=== PATIENT | female | born 1985 | race Caucasian/White ===

== ENCOUNTER 2020-11-29 06:13 | Inpatient (IN) | payer MEDICAID ==
[~2020-11-29] VITALS: Ht 162.6 cm; Wt 78.7 kg
[2020-11-29] MEDS ORDERED: ONDANSETRON 2MG/ML, 2ML IVPush ONE (06:30)
--- NOTE | 2020-11-29 06:34 | NUR ---
BIB EMS FROM [place], PT HAD ELEVATED REPEAT TROP, [employer] PT HAS GOTTEN HEPARIN, ASA, NITRO AND MORPHINE. UPON ARRIVAL TO ED PT MAIN COMPLAINT IS CANSECO, EKG UPON ARRIVAL PT CONNECTED TO ALL MONITORING, VSS, RESP EVEN AND UNLABORED.
[2020-11-29] MEDS ORDERED: ONDANSETRON 2MG/ML, 2ML ONE (06:35)
[2020-11-29] MEDS ORDERED: MORPHINE SULFATE 4 MG/ML, 1ML ONE ×2 (06:35→07:44)
[2020-11-29] MEDS: MORPHINE SULFATE 4 MG/ML, 1ML IVPush PRN ×2 (06:37→07:46)
--- NOTE | 2020-11-29 06:48 | NUR ---
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
--- NOTE | 2020-11-29 06:52 | NUR ---
REPORT FROM LISA. PT RESTING, VSS. GIVEN WARM BLANKET. CALL LIGHT IN REACH
--- NOTE | 2020-11-29 07:17 | NUR ---
dr hussein spoke with dr wilkinson
--- NOTE | 2020-11-29 08:06 | NUR ---
REPORT TO MELLY FLOWERS TELE. PT READY FOR TRANSFER. CELL PHONE W PT
[2020-11-29 08:30] LABS: ANION GAP 4 mmol/L (5-15); CALCIUM 8.4 mg/dL (8.5-10.1); CHLORIDE 110 mmol/L (98-107)
[2020-11-29] MEDS: ACETAMINOPHEN 325 MG TABLET PO PRN (10:47)
[2020-11-29] MEDS ORDERED: SODIUM CHLORIDE 0.9% 1,000 ML IV SCH (11:00)
[2020-11-29] MEDS ORDERED: morphine SULFATE 10 MG/ML, 1ML IVPush PRN (12:00)
[2020-11-29] MEDS ORDERED: ONDANSETRON ODT 4 MG PO PRN (12:00)
[2020-11-29] MEDS ORDERED: ACETAMINOPHEN 325 MG TABLET PO PRN (12:00)
[2020-11-29] MEDS ORDERED: ONDANSETRON 2MG/ML, 2ML IVPush PRN (12:00)
[2020-11-29] MEDS ORDERED: HEPARIN 25,000 UNITS/250ML PMX 250 ML IV PRN (12:30)
[2020-11-29] MEDS ORDERED: HEPARIN 5,000 UNITS/ML, 1ML IV PRN (12:30)
[2020-11-29] MEDS ORDERED: HEPARIN 5,000 UNITS/ML, 1ML IV ONE (12:30)
[2020-11-29 13:13] VITALS: BP 120/79
[2020-11-29] MEDS ORDERED: FENTANYL PF 100 MCG/2ML ONE (14:22)
[2020-11-29] MEDS ORDERED: VERAPAMIL 2.5 MG/ML, 2ML ONE (14:22)
[2020-11-29] MEDS ORDERED: BIVALIRUDIN 250 MG ONE (14:22)
[2020-11-29] MEDS ORDERED: MIDAZOLAM 1 MG/ML, 2ML ONE (14:22)
[2020-11-29] MEDS ORDERED: HEPARIN 1,000 UNITS/ML, 10ML ONE (14:23)
[2020-11-29] MEDS ORDERED: LIDOCAINE-MPF 1%, 5ML ONE (14:23)
[2020-11-29] MEDS: SODIUM CHLORIDE 0.9% 1,000 ML IV SCH ×2 (16:26→20:57)
[2020-11-29 16:31] VITALS: BP 120/79
[2020-11-29] MEDS ORDERED: SERT50TA PO (16:46)
[2020-11-29] MEDS: CARVEDILOL 3.125 MG TABLET PO SCH (18:03)
[2020-11-29 19:14] VITALS: BP 102/69
[2020-11-29] MEDS: SERTRALINE 50MG TABLET HOMEMEDPO SCH (20:30)
[2020-11-29] MEDS: DOCUSATE 100 MG CAPSULE PO SCH (20:32)
[2020-11-29] MEDS ORDERED: ATORVASTATIN 80 MG TABLET PO SCH (21:00)
[2020-11-30 01:46] VITALS: BP 101/67
[2020-11-30 05:07] LABS: BASOPHILS % (AUTO) 1 % (0-1); EOSINOPHILS % (AUTO) 4 % (1-7); LYMPHOCYTES % (AUTO) 30 % (22-44); MEAN CORPUSCULAR HEMOGLOBIN 29.6 pg (27.0-34.8); MEAN CORPUSCULAR HGB CONC 33.3 g/dL (32.4-35.8); MONOCYTES % (AUTO) 8 % (2-9); NEUTROPHILS % (AUTO) 58 % (42-75); PLATELET COUNT 204 x10^3/uL (130-400); RED BLOOD COUNT 3.98 x10^6/uL (3.82-5.3); RED CELL DISTRIBUTION WIDTH 15.1 % (9.6-15.2)
[2020-11-30 05:08] LABS: MD NO
[2020-11-30 05:23] LABS: ANION GAP 3 mmol/L (5-15); CALCIUM 8.3 mg/dL (8.5-10.1); CHLORIDE 110 mmol/L (98-107); CREATININE 0.66 mg/dL (0.55-1.02)
[2020-11-30] MEDS: CARVEDILOL 3.125 MG TABLET PO SCH (05:30)
[2020-11-30] MEDS ORDERED: ASPIRIN 325 MG TABLET PO SCH (06:00)
[2020-11-30 07:28] VITALS: BP 98/88
[2020-11-30] MEDS: SERTRALINE 50MG TABLET HOMEMEDPO SCH (08:05)
[2020-11-30] MEDS: DOCUSATE 100 MG CAPSULE PO SCH (08:05)
[2020-11-30] MEDS ORDERED: ASPI81TA45 PO (10:41)
[2020-11-30] MEDS: ACETAMINOPHEN 325 MG TABLET PO PRN (12:53)
[2020-11-30 13:17] VITALS: BP 109/72
== END 2020-11-30 17:30 | disposition home or self-care (01) | DRG 190 ==
LOC: ED 07:29 → SUATTDRO 08:12 → EDIP 08:40 → 5SO 08:43
PROVIDERS: ADMIT Family Medicine; ATTEND Family Medicine
PROC: 4A023N7 Measurement of Cardiac Sampling and Pressure, Left Heart, Percutaneous Approach (ICD-10-PCS; principal; 2020-11-29)
PROC: B2111ZZ Fluoroscopy of Multiple Coronary Arteries using Low Osmolar Contrast (ICD-10-PCS; 2020-11-29)
PROC: B2151ZZ Fluoroscopy of Left Heart using Low Osmolar Contrast (ICD-10-PCS; 2020-11-29)
DX: I21.A1 Myocardial infarction type 2 (principal); F32.9 Major depressive disorder, single episode, unspecified; G43.909 Migraine, unspecified, not intractable, without status migrainosus
CPT/HCPCS: 36415; 71045; 80048; 83735; 84443; 84484; 85025; 85520; 93005; 93306; 93356; 93458; 99156; C1769; C1894; G0378; J0583; J1644; J2250; J2405; J3010; J2270; J7030; Q9967